=== PATIENT | female | born 1970 | race Caucasian/White ===

== ENCOUNTER 2019-11-16 19:11 | Inpatient (IN) | payer OTHER ==
[~2019-11-16] VITALS: Ht 170.2 cm; Wt 99.8 kg
--- NOTE | ~2019-11-16 | OP ---
[address] [address] OPERATIVE REPORT Name: LUCIO FRANCO Room: [address] IN .R.#: [id number] Admission: 11/18/19 Attend Phys: Aidan Betts MD Discharge: Date of : 66 Report #: [id number] THIS REPORT FOR: //name// cc: Kaci العراقي Kathleen M. DO ~ THIS REPORT FOR: //name// CC: Aidan العراقي DATE OF SERVICE: 11/18/2019 PREOPERATIVE DIAGNOSIS: Gallstone pancreatitis. POSTOPERATIVE DIAGNOSIS: Gallstone pancreatitis. OPERATION: Laparoscopic cholecystectomy with intraoperative cholangiogram. SURGEON: Ba Goodson MD ANESTHESIA: General. ESTIMATED BLOOD LOSS: Minimal. SPECIMEN: Gallbladder. DESCRIPTION OF PROCEDURE: After informed consent was obtained, the patient was brought to the operating room and placed supine. SCDs were placed and working, preoperative antibiotics were administered, general anesthesia was induced. The abdomen was prepped and draped in the usual sterile fashion. A 5 mm incision was made in the left upper quadrant. A 5 mm trocar was placed under direct vision. Pneumoperitoneum was established. A left periumbilical 5 mm trocar was placed. She had adhesions of the small bowel up to the abdominal wall in the right upper quadrant. These were taken down bluntly and sharply taking great care not to injure the small bowel. I was able to visualize the gallbladder. Three right upper quadrant 5 mm ports were then placed. Gallbladder was grasped and retracted cephalad. Infundibulum was grasped and retracted laterally. I dissected out the cystic duct and cystic artery. The cystic duct was clipped. A ductotomy was made. Cholangiogram catheter was inserted. Cholangiogram was performed. This demonstrated filling of the cystic duct, common bile duct, common hepatic duct, bifurcation of the hepatics, easy flow into the duodenum. This was normal. The cholangiogram catheter was then removed. The cystic duct was clipped and ligated leaving a clip and a PDS Endoloop on the remaining cystic duct. The cystic artery was clipped and ligated. [place] [address] OPERATIVE REPORT Name: LUCIO FRANCO Room: [address]#: [id number] Admission: 11/18/19 Attend Phys: Aidan Betts MD Discharge: Date of : 66 Report #: [id number] liver bed with electrocautery. It was placed into an Endopouch and removed. Fascia was then closed with a [id number] 0 Vicryl. Skin was closed with 4-0 Monocryl. Incisions were sealed with Dermabond. COMPLICATIONS: None. DISPOSITION: The patient was taken to recovery in satisfactory condition. By: 1430 1438Ba Goodson MD /fatimha
[~2019-11-16 19:11] MED LIST: BLOOD PRESSURE MED; FLONASE 0.05%50 MCG NASAL; NOHOMEMEDICATIONS
[2019-11-16 19:20] VITALS: BP 110/74
[2019-11-16 20:23] LABS: ABSOLUTE LYMPHOCYTES 2.2 thou/uL (0.8-5.3); ABSOLUTE MONOCYTES 0.5 thou/uL (0.0-1.2); ABSOLUTE NEUTROPHILS 13.8 thou/uL (1.6-8.1); BASOPHILS 0.2 %; EOSINOPHILS 0.2 %; HEMATOCRIT 46.2 % (37.0-47.0); HEMOGLOBIN 15.4 gm/dL (12.0-15.0); LYMPHOCYTES 13.2 %; MCH 29.2 pg (26.0-34.0); MCHC 33.2 g/dL (28.0-37.0); MONOCYTES 2.9 %; MPV 8.3 fl. (7.2-11.1); NUCLEATED RBCS 0 /100WBC; PLATELET COUNT* 300 thou/uL (150-400); POLYS 83.5 %; RBC 5.26 mil/uL (4.20-5.00); RDW-CV 14.2 % (10.5-14.5); WBC 16.6 thou/uL (4.0-11.0)
[2019-11-16 20:30] LABS: CALCIUM 9.2 mg/dL (8.5-10.1); CREATININE 0.9 mg/dL (0.6-1.3); POTASSIUM 3.7 mmol/L (3.5-5.1)
[2019-11-16 20:34] LABS: ALBUMIN 4.1 g/dL (3.4-5.0); TOTAL BILIRUBIN 0.6 mg/dL (<0.1-1.0); TOTAL PROTEIN 8.5 g/dL (6.4-8.2)
[2019-11-16 23:31] VITALS: BP 106/68
[2019-11-17 08:39] VITALS: BP 118/55
--- NOTE | 2019-11-17 15:06 | EKG ---
[place] [address] ELECTROCARDIOGRAM REPORT Name: LUCIO FRANCO Room: [address]#: [id number] Admission: 11/16/19 Attend Phys: Aidan Betts, Discharge: Date of : 66 Date of Service: 11/16/192020 Report #: [id number] THIS REPORT FOR: //name// [facility] ED Test Date: 2019-11-16 Test Time: 20:21:23 Pat Name: LUCIO FRANCO Department: Room: [facility] Gender: F Mechanical Lead: MERLYN : 1970 Requested By: Lula Ma Order Number: [id number] MD: Calixto Johnston Measurements Intervals [place] Rate: 63 P: 47 [place]: 184 QRS: 1 QRSD: 101 T: 262 QT: 485 QTc: 497 Interpretive Statements Sinus rhythm Probable anterolateral infarct, age indeterm Abnormal T, consider ischemia, lateral leads No previous ECG available for comparison Electronically Signed On 11-17-2019 15:06:00 CDT by Calixto Johnston [email or web address] <ELECTRONICALLY SIGNED> By: Calixto Johnston MD, [facility] 11/17/19 1506 20 20 Calixto Johnston MD, [facility] /EPI
[2019-11-17 15:14] VITALS: BP 132/68
[2019-11-17 21:11] VITALS: BP 137/70
--- NOTE | 2019-11-18 01:49 | CON ---
[address] [address] CONSULTATION Name: LUCIO FRANCO Room: [address] [place]#: [id number] Admission: 11/16/19 Attend Phys: Aidan Betts MD Discharge: Date of : 66 Report #: [id number] THIS REPORT FOR: //name// cc: Kaci العراقي Kathleen M. DO ~ THIS REPORT FOR: //name// CC: Aidan Brink DICTATED BY: Lisa aFirchild [facility] DATE OF SERVICE: 11/17/2019 Please note at the time of this dictation, the patient was seen and physically examined by myself. REASON FOR CONSULTATION: Possible pancreatitis. HISTORY OF PRESENT ILLNESS: This is a 49-year-old female who presented to the Emergency Room after having abrupt onset of right upper quadrant pain, which progressively got worse where it became unbearable, prompting her to come in to the Emergency Room. She states she had significant nausea. She wanted to vomit, but was unable to do so. She felt kind of clammy and very extensive abdominal pain. She has never had this experience before. She states that her and her just started on a new diet of just only fish and fruits over the last couple of weeks. She states she really has not noted any weight loss at this time. She states her bowels do move pretty much on a regular basis once a day, soft and formed without any issues. She states 15-20 years ago she had an EGD and colonoscopy that were performed, she does not recall where. ALLERGIES: LATEX. MEDICATIONS: From home, Flonase and some kind of blood pressure medication. PAST MEDICAL HISTORY: Hypertension. 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 FAMILY HISTORY: Father has Crohn's. SOCIAL HISTORY: Denies any alcohol, tobacco or illegal drug use. The patient is and [place] [address] CONSULTATION Name: LUCIO FRANCO Room: [address]#: [id number] Admission: 11/16/19 Attend Phys: Aidan Betts MD Discharge: Date of : 66 Report #: [id number] REVIEW OF SYSTEMS: The 12-point review of systems is essentially negative except what is mentioned in the HPI. PHYSICAL EXAMINATION: VITAL SIGNS: Temperature 36.2, pulse 67, respirations 13, and blood pressure 118/55. HEART: Regular rate and rhythm. LUNGS: Clear. ABDOMEN: Soft, positive bowel sounds in all 4 quadrants with right upper quadrant to midepigastric tenderness noted to palpation. LABORATORY DATA: Hemoglobin 15.4, white count is 16.6, and platelets 300. GFR 66, total bilirubin 0.6, alkaline phosphatase 120, ALT 43, AST is 26, and lipase is 540. CT of the abdomen and pelvis shows sludge in the dependent part of the gallbladder, bile duct appears to be normal, and also noted malrotation within the small bowel. Ultrasound results are still pending. IMPRESSION: 1. Abdominal pain, somewhat improved. 2. Nausea and vomiting, improved. 3. Leukocytosis. 4. Elevated alkaline phosphatase. 5. Gallbladder sludge. 6. Family history of Crohn's disease. PLAN: 1. Ultrasound results are still pending. 2. May consider an MRCP depending on the above findings. 3. Surgery has already been consulted. 4. Further recommendations to be made once the above have all been noted by Dr. De Los Santos. Thank you for allowing me to participate in this patient's care. Please do not hesitate to call with any questions in regard to this consult. <ELECTRONICALLY SIGNED> By: Dot De Los Santos MD 11/18/19 0149 1221 1231Dot De Los Santos MD /nt
[2019-11-18 04:48] LABS: URINE BILIRUBIN NEGATIVE (Negative); URINE BLOOD NEGATIVE (Negative); URINE CLARITY CLEAR; URINE COLOR YELLOW; URINE GLUCOSE-RANDOM NEGATIVE (Negative); URINE KETONES NEGATIVE (Negative); URINE LEUKOCYTES-REFLEX NEGATIVE (Negative); URINE NITRITE-REFLEX NEGATIVE (Negative); URINE PROTEIN NEGATIVE (Negative); URINE SPECIFIC GRAVITY 1.025 (1.005-1.030); URINE UROBILINOGEN 0.2 E.U./dl (0.2-1.0)
[2019-11-18 05:12] LABS: ABSOLUTE EOSINOPHILS 0.3 thou/uL (0.0-0.7); ABSOLUTE LYMPHOCYTES 3.3 thou/uL (0.8-5.3); ABSOLUTE MONOCYTES 0.6 thou/uL (0.0-1.2); ABSOLUTE NEUTROPHILS 3.7 thou/uL (1.6-8.1); BASOPHILS 0.3 %; EOSINOPHILS 3.5 %; LYMPHOCYTES 41.8 %; MCH 29.7 pg (26.0-34.0); MCHC 33.4 g/dL (28.0-37.0); MCV 89.1 fL (80.0-100.0); MONOCYTES 7.6 %; MPV 8.4 fl. (7.2-11.1); NUCLEATED RBCS 0 /100WBC; PLATELET COUNT* 233 thou/uL (150-400); POLYS 46.8 %; RBC 4.15 mil/uL (4.20-5.00); RDW-CV 13.9 % (10.5-14.5); WBC 7.8 thou/uL (4.0-11.0)
[2019-11-18 05:13] LABS: HEMOGLOBIN 12.3 gm/dL (12.0-15.0)
[2019-11-18 05:20] LABS: CREATININE 0.6 mg/dL (0.6-1.3); POTASSIUM 3.8 mmol/L (3.5-5.1)
[2019-11-18 05:34] LABS: CALCIUM 7.6 mg/dL (8.5-10.1)
[2019-11-18 07:49] VITALS: BP 140/79
[2019-11-18 16:47] VITALS: BP 134/81
[2019-11-18 20:00] VITALS: BP 151/86
[2019-11-19 00:26] VITALS: BP 119/71
[2019-11-19 04:00] VITALS: BP 140/80
[2019-11-19 04:57] LABS: HEMATOCRIT 36.7 % (37.0-47.0); HEMOGLOBIN 12.5 gm/dL (12.0-15.0); MCH 29.7 pg (26.0-34.0); MCHC 34.1 g/dL (28.0-37.0); MCV 87.1 fL (80.0-100.0); MPV 8.3 fl. (7.2-11.1); RBC 4.21 mil/uL (4.20-5.00); RDW-CV 13.8 % (10.5-14.5); WBC 8.2 thou/uL (4.0-11.0)
[2019-11-19 05:19] LABS: ALBUMIN 3.2 g/dL (3.4-5.0); CALCIUM 7.9 mg/dL (8.5-10.1); CREATININE 0.6 mg/dL (0.6-1.3); MAGNESIUM 1.9 mg/dL (1.8-2.4); POTASSIUM 4.1 mmol/L (3.5-5.1); TOTAL BILIRUBIN 0.3 mg/dL (<0.1-1.0); TOTAL PROTEIN 6.9 g/dL (6.4-8.2)
[2019-11-19 07:30] VITALS: BP 148/77
[2019-11-19] MEDS ORDERED: ZOFRAN ODT4 MG PO (07:44)
[2019-11-19] MEDS ORDERED: SENNA PLUS TAB1 EACH PO (07:44)
[2019-11-19] MEDS ORDERED: HYDROCODON-ACE1 EAC7 PO (07:44)
[2019-11-19 09:00] VITALS: BP 140/80
--- NOTE | 2019-11-23 13:08 | PATH ---
[facility] [address] [place] [address] PATHOLOGY RPT PROCEDURE Name: LUCIO MAGDALENO Room: [address] IN .R.#: [id number] Admission: 11/18/19 Date of : 66 Discharge: 11/19/19 Report #: [id number] Path Case #: [id number] [facility] Accession Number: [id number] . 01 Material submitted: . gallbladder - GALLBLADDER . 01 Clinical history: . Pancreatitis and gallbladder sludge . 02 Diagnosis: Gallbladder, excision: - Chronic cholecystitis; negative for malignancy. - Lithiasis. - Cholesterolosis. . 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 02 Diagnosis provided by: . Sadia Rao MD, Pathologist NPI- [id number] . 03 Electronically signed: . Sadia Rao MD, Pathologist NPI- [id number] . 01 Gross description: . The specimen is received in formalin labeled "Lucio Magdaleno gallbladder" and consists of an intact green pink gallbladder measuring 7.8 x 3.0 x 1.8 cm. The margin is inked black. Opening reveals a lumen filled with tenacious green bile and a single mulberry yellow calculi measuring 1.6 cm. The mucosa is green with extensive yellow stippling and an average wall thickness of 0.1 cm. No masses are identified. Cold Saw Operator sections are submitted in A1. (SDY; 11/19/2019) SYU/SYU 11/19/2019 1258 Local . 02 Pathologist provided ICD-10: K80.10, K82.4 . 02 CPT . 877904 Specimen Comment: A courtesy copy of this report has been sent to [phone] Specimen Comment: [phone] Specimen Comment: Report sent to ,DR PANDEY / DR ZAPIEN Performed at: [address] [place] [address] PATHOLOGY RPT PROCEDURE Name: MAGDALENOLUCIO Desean Room: [address] IN M.R.#: [id number] Admission: 11/18/19 Date of : 66 Discharge: 11/19/19 Report #: [id number] Path Case #: [id number] [place] [id number] [id number] MD Jorge Mclean MD Phone: [phone] Performed at: [address] [place] [address] Luci Burnett, [place], [place] [id number] MD Alberto Sagastume MD Phone: [phone] Performed at: [address] [place] [address] [address] [id number] MD Miguel A Chapin MD Phone: [phone]
== END 2019-11-19 09:45 | disposition home or self-care (01) | DRG 417 ==
LOC: M.ERS 19:11 → M.TBA-ER 22:08 → M.ORTHSURG 22:08
PROVIDERS: Internal Medicine; Personal Emergency Response Attendant; ADMIT Internal Medicine; ATTEND Internal Medicine
PROC: BF131ZZ Fluoroscopy of Gallbladder and Bile Ducts using Low Osmolar Contrast (ICD-10-PCS; principal; 2019-11-18)
PROC: 0FT44ZZ Resection of Gallbladder, Percutaneous Endoscopic Approach (ICD-10-PCS; principal; 2019-11-18)
DX: K81.0 Acute cholecystitis (principal); K85.10 Biliary acute pancreatitis without necrosis or infection; E66.9 Obesity, unspecified; I10 Essential (primary) hypertension; Z68.34 Body mass index [BMI] 34.0-34.9, adult; Z91.040 Latex allergy status; Z83.79 Family history of other diseases of the digestive system